=== PATIENT | female | born 1950 | race Caucasian/White ===

== ENCOUNTER → 2020-10-10 | Outpatient (CLI) | payer OTHER | LOC: EMI 13:00 | DX: M50.31 Other cervical disc degeneration, high cervical region (principal); M43.20 Fusion of spine, site unspecified; M53.2X2 Spinal instabilities, cervical region; M47.9 Spondylosis, unspecified; R93.7 Abnormal findings on diagnostic imaging of other parts of musculoskeletal system; M51.36 Other intervertebral disc degeneration, lumbar region; M48.02 Spinal stenosis, cervical region; M25.78 Osteophyte, vertebrae; M50.221 Other cervical disc displacement at C4-C5 level; V89.2XXA Person injured in unspecified motor-vehicle accident, traffic, initial encounter | CPT/HCPCS: 72141 ==

== ENCOUNTER → 2020-11-07 | Outpatient (CLI) | payer OTHER | LOC: HEART 5 08:09 | DX: R07.9 Chest pain, unspecified (principal); R94.31 Abnormal electrocardiogram [ECG] [EKG]; I20.9 Angina pectoris, unspecified; I08.1 Rheumatic disorders of both mitral and tricuspid valves | CPT/HCPCS: 78452; 93306; A9502; J2785 ==

== ENCOUNTER → 2021-04-08 | Outpatient (CLI) | payer MEDICARE, OTHER | LOC: KOH-I 09:04 | DX: R10.84 Generalized abdominal pain (principal); R33.9 Retention of urine, unspecified | CPT/HCPCS: 76700; 76856 ==

== ENCOUNTER 2021-04-29 13:34 | Emergency (ER) | payer MEDICARE, OTHER ==
[2021-04-29 14:42] LABS: HEMOGLOBIN 12.8 gm/dl (12.3-15.3); RED BLOOD COUNT 4.26 M/UL (4.00-5.10); WHITE BLOOD COUNT 8.3 K/UL (4.5-11.0)
[2021-04-29 15:05] LABS: BUN/CREATININE RATIO 19 (0-10)
== END 2021-04-29 18:49 | disposition home or self-care (01) ==
LOC: ER1 13:34
PROVIDERS: Family Medicine
DX: R07.9 Chest pain, unspecified (principal); Z90.710 Acquired absence of both cervix and uterus; Z88.2 Allergy status to sulfonamides; Z88.5 Allergy status to narcotic agent; Z79.899 Other long term (current) drug therapy
CPT/HCPCS: 71045; 80053; 82550; 82553; 83874; 84484; 85025; 85610; 99285

== ENCOUNTER → 2021-08-13 | Outpatient (CLI) | payer MEDICARE, OTHER | LOC: RAD 07:31 | DX: K31.84 Gastroparesis (principal); K21.00 Gastro-esophageal reflux disease with esophagitis, without bleeding; K22.89 Other specified disease of esophagus; K44.9 Diaphragmatic hernia without obstruction or gangrene; Z90.49 Acquired absence of other specified parts of digestive tract | CPT/HCPCS: 74246 ==